=== PATIENT | male | born 1975 ===

== ENCOUNTER 2017-01-27 20:00 | Emergency (ER) | payer BC, OTHER ==
[2017-01-27 20:26] VITALS: BP 105/70
--- NOTE | 2017-01-27 21:04 | UC ---
Anthony Perdomo Thomas, scribed for Diann Rodriguez MD on 01/27/17 at 2041 . Lower Extremity/Ankle HPI - HPI Summary HPI Summary: The pt is a 41 y/o F presenting to [facility] [place] c/o L ankle pain s/p an injury while playing basketball today at 18:42. He is not sure whether there was inversion or eversion during the injury. He says it felt like somebody kicked me. There is pain with weight bearing. Pt report pain along medial malleolus. The pain is rated 3/10. 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 He denies knee or hip pain. He did have bilateral ankle corrective surgery as a child. He did not consume any alcohol today. Pt without other injury or concerns Patients medication reviewed this visit. - History of Current Complaint Chief Complaint: UCLowerExtremity Stated Complaint: ANKLE INJURY Time Seen by Provider: 01/27/17 20:27 Hx Obtained From: Patient Onset/Duration: Sudden Onset, Lasting Hours - onset today at 18:42, Still Present Pain Intensity: 3 Pain Scale Used: 0-10 Numeric Aggravating Factor(s): Standing, Ambulation Alleviating Factor(s): Nothing Able to Bear Weight: No Related History: Other - basketball injury - Allergies/Home Medications Allergies/Adverse Reactions: Allergies Allergy/AdvReac Type Severity Reaction Status Date / Time No Known Allergies Allergy Verified 01/27/17 20:26 PMH/Surg Hx/FS Hx/Imm Hx Previously Healthy: No Endocrine History: Other Other Endocrine History: NEG: DM Respiratory History: Asthma - Surgical History Surgical History: Yes Surgery Procedure, Year, and Place: BILAT ANKLE CORRECTIVE SURGERY - Family History Known Family History: Negative: Cardiac Disease - Social History Occupation: Employed Full-time Lives: With Family Alcohol Use: None Substance Use Type: Marijuana Smoking Status (MU): Current Some Day Smoker Review of Systems Constitutional: Other - NEG: fever Musculoskeletal: Other: - L ankle pain; NEG: hip pain, knee pain Neurological: Negative Psychological: Negative All Other Systems Reviewed And Are Negative: Yes Physical Exam Triage Information Reviewed: Yes Appearance: Well-Appearing, No Pain Distress, Well-Nourished Vital Signs: Initial Vital Signs Temp 98.6 F 01/27/17 20:21 Pulse 104 01/27/17 20:21 Resp 16 09/20/17 20:21 BP 105/70 01/27/17 20:21 Pulse Ox 98 01/27/17 20:21 Vital Signs Reviewed: Yes Eyes: Negative: Discharge ENT: Positive: Hearing grossly normal Neck: Positive: Supple, Nontender Respiratory: Positive: No respiratory distress, No accessory muscle use Cardiovascular: Positive: Other: - 2+ DP, PT CBT < 2 sec Musculoskeletal: Positive: Other: - + flex/ext knee neg pain prox tib/fib + flex /ext ankle with pain medial malleolus + great toe ext neg pain along tarsals, metatarsals + TTP along inferior, posterior medial malleolus of left ankle no crepitus mild edema no pain achilles Pt with small palpable ?cyst achilels - + flex/ext ankle witout posterior ankle pain Neurological: Positive: Other: - + sensation throughout + great toe ext Psychological Exam: Normal Skin Exam: Normal Skin: Positive: Other - mild edema no ecchymosis Diagnostics - Radiology Ankle XR Xray Interpretation: No Acute Changes - NO RADIOGRAPHIC EVIDENCE OF ACUTE FRACTURE OR DISLOCATION OF THE LEFT ANKLE. (confirmed via call to photonics engineering technician ) Radiology Interpretation Completed By: Radiologist Lower Extremity Course/Dx - Course Course Of Treatment: pt with left ankle status post injury during basketball - ? inverstion / eversion. Pt with pain inferior, posterior left medial malleoulus. Pt with ?cyst achilles - non tender. Will check xray. ice. analgesia. elevate. ayo. crtuches. splint if fx. pt comfortable with plan - Differential Dx/Diagnosis Provider Diagnoses: ankle sprain Discharge - Discharge Plan Condition: Stable Disposition: HOME Patient Education Materials: Ankle Sprain (ED) Forms: *Work Release Referrals: [facility] [place] PHYSICIAN REFERRAL [Outside] - If Needed Sports Medicine [facility] [Provider Group] - 2 Days (Address: [address] [place] [address] [address] [place] [address] Phone: [phone]) Additional Instructions: -wear ayo wrap for comfort and support -apply ice (20 min at a time) every 2-3 hours for the next 2 days - okay to alternate ibuprofen (Advil, motrin) and Tylenol every 3 hours for pain -use crutches until you can walk normally without a limp -Elevate your leg - this will help with swelling and pain -Contact your doctor to arrange a follow-up appointment next week. Contact your doctor or return with questions or concerns The documentation as recorded by the Anthony corral Thomas accurately reflects the service I personally performed and the decisions made by me, Diann Rodriguez MD.
--- NOTE | 2017-01-27 21:32 | RAD ---
INDICATION: The ankle pain after basketball and draped COMPARISON: None. TECHNIQUE: 3 views of the left ankle were obtained. FINDINGS: Cortical irregularity is noted the distal diaphysis of the tibia and fibula with a chronic appearance. The well corticated bones exhibit normal alignment. Joint spaces appear maintained. No fracture is seen. IMPRESSION: RADIOGRAPHIC EVIDENCE OF ACUTE FRACTURE OR DISLOCATION OF THE LEFT ANKLE. PORT If the patient's symptoms persist, follow-up imaging is recommended.
== END 2017-01-27 21:38 | disposition home or self-care (01) ==
LOC: UCEAST 20:00
DX: S93.402A Sprain of unspecified ligament of left ankle, initial encounter (principal); X58.XXXA Exposure to other specified factors, initial encounter; Y93.67 Activity, basketball; Y92.310 Basketball court as the place of occurrence of the external cause; J45.909 Unspecified asthma, uncomplicated; F12.90 Cannabis use, unspecified, uncomplicated; Z72.0 Tobacco use
CPT/HCPCS: 99203; G0463